=== PATIENT | male | born 1945 | race Caucasian/White ===

== ENCOUNTER 2018-12-13 15:15 | Outpatient (REF) | payer MEDICARE, BC, SELFPAY ==
[2018-12-13 20:40] LABS: Abs Immature Grans 0.02 k/cumm (0.0-0.09); Absolute Basophil Count 0.02 k/cumm (0.0-0.2); Absolute Eosinophil Count 0.25 k/cumm (0.0-0.7); Absolute Lymphocyte Count 1.61 k/cumm (1.2-3.4); Absolute Monocyte Count 0.68 k/cumm (0.11-0.7); Absolute Neutrophil Count 4.97 k/cumm (1.2-6.7); Basophils % 0.3; Eosinophils % 3.3; HCT 40.9 % (40.0-50.0); HGB 13.2 g/dL (13.5-17.5); Immature Grans % 0.3; Lymphocytes % 21.3; Mean Corp. HGB Concentration 32.3 g/dL (32.0-36.0); Mean Corpuscular Hemoglobin 28.8 pg (27.0-33.0); Mean Corpuscular Volume 89.3 fL (80-95); Neutrophils % 65.8; Platelet Count 176 x1000/uL (130-400); RBC 4.58 m/cumm (4.50-6.00); RBC Distribution Width 15.6 % (11.8-14.1); White Blood Cell Count 7.55 k/cumm (4.4-10.8)
== END 2018-12-13 15:35 ==
LOC: NCHCN 15:15
PROVIDERS: PCP Internal Medicine; Visit Provider Nurse Practitioner Family
DX: R53.83 Other fatigue (principal); J44.9 Chronic obstructive pulmonary disease, unspecified; J90 Pleural effusion, not elsewhere classified
CPT/HCPCS: 85025

== ENCOUNTER 2019-10-09 14:37 | Outpatient (REF) | payer MEDICARE, BC, SELFPAY ==
[2019-10-09 21:59] LABS: HCT 45.1 % (40.0-50.0); HGB 14.7 g/dL (13.5-17.5); Mean Corp. HGB Concentration 32.6 g/dL (32.0-36.0); Mean Corpuscular Hemoglobin 29.3 pg (27.0-33.0); Mean Corpuscular Volume 89.8 fL (80-95); Platelet Count 175 x1000/uL (130-400); RBC 5.02 m/cumm (4.50-6.00); RBC Distribution Width 13.5 % (11.8-14.1); White Blood Cell Count 8.13 k/cumm (4.4-10.8)
[2019-10-09 22:26] LABS: ALT 29 U/L (16-63); AST 25 U/L (15-37); Albumin 3.7 g/dL (3.4-5.0); Alkaline Phosphatase 78 U/L (46-116); Anion Gap 10.2 mmol/L (3-11); BUN 14 mg/dL (7-18); CO2 25.8 mmol/L (21.0-32.0); CREATININE 0.85 mg/dL (0.70-1.30); Chloride 107 mmol/L (98-107); Glucose 112 mg/dL (74-106); Potassium 3.9 mmol/L (3.5-5.1); Sodium 143 mmol/L (136-145); Total Protein 7.1 g/dL (6.4-8.2)
[2019-10-13 11:32] LABS: Hepatitis C Ab w Rflx HCV PCR Negative (Negative)
== END 2019-10-09 14:57 ==
LOC: NCHCN 14:37
PROVIDERS: PCP Internal Medicine; Visit Provider Registered Nurse
DX: D50.9 Iron deficiency anemia, unspecified (principal); K21.9 Gastro-esophageal reflux disease without esophagitis; E66.9 Obesity, unspecified; Z11.59 Encounter for screening for other viral diseases
CPT/HCPCS: 80053; 85027; 86803; 83735

== ENCOUNTER 2020-07-01 21:57 | Outpatient (REF) | payer MEDICARE, BC, SELFPAY ==
[2020-07-01 20:47] LABS: Abs Immature Grans 0.03 10^3/uL (0.0-0.06); Absolute Basophil Count 0.03 10^3/uL (0.0-0.2); Absolute Eosinophil Count 0.17 10^3/uL (0.0-0.7); Absolute Lymphocyte Count 1.31 10^3/uL (1.2-3.4); Absolute Monocyte Count 0.46 10^3/uL (0.1-0.8); Absolute Neutrophil Count 5.36 10^3/uL (1.2-6.7); Basophils % 0.4; Eosinophils % 2.3; HCT 47.1 % (40.0-50.0); Immature Grans % 0.4; Lymphocytes % 17.8; MCH 29.9 pg (27.0-33.0); MCHC 31.8 % (32.0-36.0); MCV 93.8 fL (80-95); MPV 11.3 fL (8.0-11.0); Monocytes % 6.3; Neutrophils % 72.8; Nucleated RBC 0 %; Platelet Count 134 10^3/uL (130-400); RBC 5.02 10^6/uL (4.36-5.78); RDW 14.3 % (11.8-14.1); RDW-SD 48.7 fL; WBC 7.36 10^3/uL (4.4-10.8)
[2020-07-01 21:14] LABS: ALT 36 U/L (16-63); AST 25 U/L (15-37); Albumin 3.4 g/dL (3.4-5.0); Alkaline Phosphatase 76 U/L (46-116); Anion Gap 10.6 mmol/L (3-11); BUN 13 mg/dL (7-18); Bilirubin, Total 0.7 mg/dL (0.2-1.0); CO2 23.4 mmol/L (21.0-32.0); CREATININE 0.96 mg/dL (0.70-1.30); Calcium 8.7 mg/dL (8.5-10.1); Chloride 105 mmol/L (98-107); Glucose 133 mg/dL (74-106); NT-proBNP 91 pg/mL (<300); Sodium 139 mmol/L (136-145); TSH 1.47 uIU/mL (0.36-3.74); Total Protein 6.7 g/dL (6.4-8.2)
== END 2020-07-01 22:17 ==
LOC: NCHCN 21:57
PROVIDERS: PCP Internal Medicine; Visit Provider Registered Nurse
DX: R06.00 Dyspnea, unspecified (principal)
CPT/HCPCS: 80053; 83880; 84443; 85025

== ENCOUNTER 2021-04-14 12:48 | Outpatient (REF) | payer MEDICARE, BC, SELFPAY ==
[2021-04-14 21:12] LABS: HCT 50.5 % (40.0-50.0); HGB 16.5 g/dL (13.5-17.5); MCH 30.3 pg (27.0-33.0); MCHC 32.7 % (32.0-36.0); MCV 92.8 fL (80-95); MPV 11.5 fL (8.0-11.0); Platelet Count 143 10^3/uL (130-400); RBC 5.44 10^6/uL (4.36-5.78); RDW 14.2 % (11.8-14.1); RDW-SD 47.8 fL; WBC 8.11 10^3/uL (4.4-10.8)
[2021-04-14 21:19] LABS: ALT 34 U/L (16-63); AST 27 U/L (15-37); Albumin 3.7 g/dL (3.4-5.0); Alkaline Phosphatase 84 U/L (46-116); Anion Gap 11.2 mmol/L (3-11); BUN 18 mg/dL (7-18); Bilirubin, Total 1.7 mg/dL (0.2-1.0); CO2 24.8 mmol/L (21.0-32.0); CREATININE 1.1 mg/dL (0.70-1.30); Calcium 9.3 mg/dL (8.5-10.1); Chloride 106 mmol/L (98-107); Glucose 133 mg/dL (74-106); Potassium 4.1 mmol/L (3.5-5.1); Sodium 142 mmol/L (136-145); Total Protein 7.2 g/dL (6.4-8.2)
[2021-04-14 21:43] LABS: Hemoglobin A1C 6.7 % (<5.7)
== END 2021-04-14 12:49 | disposition home or self-care (01) ==
LOC: NCHCN 12:48
PROVIDERS: PCP Internal Medicine; Visit Provider Registered Nurse
DX: R73.03 Prediabetes; R06.00 Dyspnea, unspecified; D64.9 Anemia, unspecified
CPT/HCPCS: 80053; 85027; 83036

== ENCOUNTER 2021-05-06 15:43 | Outpatient (REF) | payer MEDICARE, BC, SELFPAY ==
[2021-05-06 14:04] LABS: Anion Gap 10.9 mmol/L (3-11); BUN 15 mg/dL (7-18); CO2 24.1 mmol/L (21.0-32.0); CREATININE 1.1 mg/dL (0.70-1.30); Calcium 9.2 mg/dL (8.5-10.1); Chloride 107 mmol/L (98-107); Glucose 117 mg/dL (74-106); Potassium 4.1 mmol/L (3.5-5.1); Sodium 142 mmol/L (136-145)
== END 2021-05-06 15:44 | disposition home or self-care (01) ==
LOC: NCHCN 15:43
PROVIDERS: PCP Internal Medicine; Visit Provider Registered Nurse
DX: I10 Essential (primary) hypertension (principal)
CPT/HCPCS: 80048

== ENCOUNTER 2022-02-08 18:47 | Outpatient (REF) | payer MEDICARE, BC, SELFPAY ==
[2022-02-08 19:00] LABS: HCT 50.8 % (40.0-50.0); HGB 15.8 g/dL (13.5-17.5); MCHC 31.1 % (32.0-36.0); MCV 93.4 fL (80-95); MPV 11.2 fL (8.0-11.0); Platelet Count 139 10^3/uL (130-400); RBC 5.44 10^6/uL (4.36-5.78); RDW-SD 47.4 fL; WBC 8.55 10^3/uL (4.4-10.8)
[2022-02-08 19:23] LABS: ALT 34 U/L (16-63); AST 29 U/L (15-37); Albumin 3.5 g/dL (3.4-5.0); Alkaline Phosphatase 76 U/L (46-116); Anion Gap 8.8 mmol/L (3-11); BUN 14 mg/dL (7-18); Bilirubin, Total 1.6 mg/dL (0.2-1.0); CO2 26.2 mmol/L (21.0-32.0); Calcium 8.8 mg/dL (8.5-10.1); Chloride 107 mmol/L (98-107); Glucose 142 mg/dL (74-106); Potassium 3.9 mmol/L (3.5-5.1); Sodium 142 mmol/L (136-145); TSH (W/Ref FT4) 1.98 uIU/mL (0.36-3.74); Total Protein 6.7 g/dL (6.4-8.2)
[2022-02-08 20:13] LABS: Hemoglobin A1C 6.8 % (<5.7)
== END 2022-02-08 18:48 | disposition home or self-care (01) ==
LOC: NCHCN 18:47
PROVIDERS: PCP Internal Medicine; Visit Provider Registered Nurse
DX: E11.9 Type 2 diabetes mellitus without complications (principal); I10 Essential (primary) hypertension; I25.10 Atherosclerotic heart disease of native coronary artery without angina pectoris; R06.09 Other forms of dyspnea; I48.91 Unspecified atrial fibrillation
CPT/HCPCS: 80053; 85027; 83036; 84443

== ENCOUNTER 2022-04-21 11:31 | Outpatient (REF) | payer MEDICARE, BC, SELFPAY ==
[2022-04-21 16:23] LABS: Microalb ug/mg Crea 12.2 ug/mg Cr
== END 2022-04-21 11:32 | disposition home or self-care (01) ==
LOC: NCHCN 11:31
PROVIDERS: PCP Internal Medicine; Visit Provider Registered Nurse
DX: E11.9 Type 2 diabetes mellitus without complications (principal)
CPT/HCPCS: 82043; 82570

== ENCOUNTER 2023-05-29 18:48 | Outpatient (REF) | payer MEDICARE, BC, SELFPAY ==
[2023-05-29 21:42] LABS: COMMENT (LAB VIEW ONLY) 216.76 mg/dL; Microalb ug/mg Crea 14.3 ug/mg Cr
== END 2023-05-29 18:49 | disposition home or self-care (01) ==
LOC: NCHCN 18:48
PROVIDERS: PCP Internal Medicine; Visit Provider Family Medicine
DX: E11.9 Type 2 diabetes mellitus without complications (principal)
CPT/HCPCS: 82043; 82570

== ENCOUNTER 2023-10-03 14:48 | Outpatient (REF) | payer MEDICARE, BC, SELFPAY ==
[2023-10-03 21:47] LABS: Anion Gap 8.9 mmol/L (3-11); BUN 16 mg/dL (7-18); CO2 26.1 mmol/L (21.0-32.0); CREATININE 1.4 mg/dL (0.70-1.30); Calcium 9.4 mg/dL (8.5-10.1); Chloride 103 mmol/L (98-107); Estimated GFR 51.77 (mL/min/1.73m2); Glucose 122 mg/dL (74-106); Potassium 4.2 mmol/L (3.5-5.1); Sodium 138 mmol/L (136-145)
== END 2023-10-03 14:49 | disposition home or self-care (01) ==
LOC: NCHCN 14:48
PROVIDERS: PCP Internal Medicine; Visit Provider Physician Assistant
DX: I50.32 Chronic diastolic (congestive) heart failure (principal)
CPT/HCPCS: 80048

== ENCOUNTER 2024-06-19 20:23 | Outpatient (REF) | payer MEDICARE, BC, SELFPAY ==
[2024-06-19 22:29] LABS: Microalb ug/mg Crea 6.8 ug/mg Cr
== END 2024-06-19 20:24 | disposition home or self-care (01) ==
LOC: NCHCN 20:23
PROVIDERS: PCP Internal Medicine; Visit Provider Family Medicine
DX: E11.9 Type 2 diabetes mellitus without complications (principal)
CPT/HCPCS: 82043; 82570

== ENCOUNTER 2025-09-07 15:42 | Outpatient (REF) | payer MEDICARE, BC, SELFPAY ==
[2025-09-07 16:42] LABS: HCT 52.0 % (40.0-50.0); HGB 16.8 g/dL (13.5-17.5); MCH 30.6 pg (27.0-33.0); MCHC 32.3 % (32.0-36.0); MCV 95 fL (80-95); MPV 11.3 fL (8.0-11.0); Platelet Count 126 10^3/uL (130-400); RBC 5.49 10^6/uL (4.36-5.78); RDW 14.1 % (11.8-14.1); RDW-SD 48.4 fL; WBC 7.08 10^3/uL (4.4-10.8)
[2025-09-07 17:15] LABS: Anion Gap 8.8 mmol/L (3-11); BUN 13 mg/dL (9-23); CO2 30.2 mmol/L (20.0-31.0); Calcium 9.5 mg/dL (8.3-10.6); Chloride 106 mmol/L (98-107); Cholesterol 143 mg/dL (<200); Glucose 129 mg/dL (74-106); HDL Cholesterol 43 mg/dL (>40); Potassium 4.5 mmol/L (3.5-5.1); Sodium 145 mmol/L (136-145)
[2025-09-07 20:27] LABS: Microalb ug/mg Crea 18.8 ug/mg Cr
== END 2025-09-07 15:43 | disposition home or self-care (01) ==
LOC: NCHCN 15:42
PROVIDERS: PCP Internal Medicine; Visit Provider Family Medicine
DX: E11.40 Type 2 diabetes mellitus with diabetic neuropathy, unspecified (principal); I10 Essential (primary) hypertension; Z79.01 Long term (current) use of anticoagulants; E78.5 Hyperlipidemia, unspecified
CPT/HCPCS: 80048; 80061; 85027; 82043; 82570